=== PATIENT | male | born 2000 | race Two or more races ===

== ENCOUNTER 2022-10-12 19:04 | Emergency (ER) | payer OTHER ==
[~2022-10-12] VITALS: Ht 167.6 cm; Wt 52.3 kg
[2022-10-12 19:15] VITALS: BP 116/78
--- NOTE | 2022-10-13 15:34 | NUR ---
TC FROM [facility] CRISIS [employer]IT EMPLOYEE INQUIRING ABOUT LAB STUDIES THAT WERE REQUESTED WHEN PATIENT WAS SENT TO THE ER YESTERDAY. NO LABS WERE DONE AND THE CRISIS UNIT EMPLOYEE WAS INFORMED THAT ADDITIONAL LABS WERE NOT INDICATED, WRITTEN ON THE PATIENT'S DC PAPERWORK.
== END 2022-10-12 19:32 | disposition home or self-care (01) ==
LOC: ER 19:05
DX: F99 Mental disorder, not otherwise specified (principal)
CPT/HCPCS: 99281